=== PATIENT | female | born 2000 | race American Indian/Alaskan Native ===

== ENCOUNTER 2020-09-24 01:59 | Emergency (ER) | payer SELFPAY ==
[2020-09-24 03:12] LABS: Basophils % (Auto) 0.5 % (0.0-1.8); Eosinophils % (Auto) 0.4 % (0.0-4.3); Hematocrit 34.9 % (30.3-42.9); Hemoglobin 11.9 gm/dl (10.1-14.3); Lymphocytes # (Auto) 1.6 K/mm3 (1.2-5.4); Lymphocytes % (Auto) 24.2 % (13.4-35.0); Mean Corpuscular HGB Conc 34 % (30-34); Mean Corpuscular Volume 94 fl (79-97); Monocytes # (Auto) 0.8 K/mm3 (0.0-0.8); Monocytes % (Auto) 12.6 % (0.0-7.3); Platelet Count 236 K/mm3 (140-440); Red Blood Count 3.72 M/mm3 (3.65-5.03); Red Cell Distribution Width 14.4 % (13.2-15.2)
[2020-09-24 03:33] LABS: BUN/Creatinine Ratio 12; Blood Urea Nitrogen 11 mg/dL (7-17); Calcium 9.4 mg/dL (8.4-10.2); Hemolysis Index 5
--- NOTE | 2020-09-24 04:04 | Emergency Department Report ---
ED Psych HPI - General Chief Complaint: Psych Stated Complaint: MH Time Seen by Provider: 09/24/20 03:30 Source: EMS Mode of arrival: Stretcher - History of Present Illness Initial Comments: 20-year-old female, with reported history of bipolar disorder, presents to ED via EMS. Per EMS report, patient was at a bar earlier in the night. Police officers found her walking around in circles in the road. Patient exhibiting strange behavior, trying to take off her clothes, acting fidgety. Patient apparently took someone else's car as well. She also tried to jump off a retain ing wall. Patient was given Haldol and Versed by EMS. She is currently quite sedated and I am unable to get any history from her. Patient only moans. Complaint: altered mental status -: This morning - Related Data Home Medications Medication Instructions Recorded Confirmed Last Taken OLANzapine [ZyPREXA] 5 mg PO BID 09/24/20 09/24/20 Unknown diphenhydrAMINE [Benadryl CAP] 25 mg PO BID 09/24/20 09/24/20 Unknown Allergies Allergy/AdvReac Type Severity Reaction Status Date / Time cetirizine [From Zyrtec] Allergy Unknown Verified 09/24/20 02:24 ED Review of Systems ROS: Stated complaint: MH Other details as noted in HPI Comment: Unobtainable due to pts medical conditions ED Past Medical Hx - Past Medical History Previous Medical History?: Yes Hx Psychiatric Treatment: Yes (bipolar) Hx Asthma: Yes - Surgical History Past Surgical History?: No Additional Surgical History: unknown - Medications Home Medications: Home Medications Medication Instructions Recorded Confirmed Last Taken Type OLANzapine [ZyPREXA] 5 mg PO BID 09/24/20 09/24/20 Unknown History diphenhydrAMINE [Benadryl CAP] 25 mg PO BID 09/24/20 09/24/20 Unknown History ED Physical Exam - General Limitations: Altered Mental Status General appearance: lethargic (Lethargic but arousable) - Head Head exam: Present: atraumatic, normocephalic - Eye Eye exam: Present: normal appearance, PERRL, EOMI - ENT ENT exam: Present: mucous membranes moist - Neck Neck exam: Present: normal inspection - Respiratory Respiratory exam: Present: normal lung sounds bilaterally. Absent: respiratory distress - Cardiovascular Cardiovascular Exam: Present: regular rate, normal rhythm - GI/Abdominal GI/Abdominal exam: Present: soft. Absent: distended, tenderness - Extremities Exam Extremities exam: Present: normal inspection - Neurological Exam Neurological exam: Present: other (Lethargic but will awaken to painful stimuli, opens eyes and moans, moves all extremities) - Skin Skin exam: Present: warm, dry, intact, normal color ED Course Vital Signs 09/24/20 09/24/20 09/24/20 02:44 08:37 20:15 Temperature 97.5 F L 98.2 F 98.2 F Pulse Rate 59 L 75 76 Respiratory 16 20 16 Rate Blood Pressure 102/44 117/80 105/62 [Right] O2 Sat by Pulse 99 100 100 Oximetry ED Medical Decision Making - Lab Data Result diagrams: 09/24/20 02:54 09/24/20 02:54 - Radiology Data Radiology results: report reviewed, image reviewed - Medical Decision Making 20-year-old female presents to ED following bizarre behavior witnessed by PD and EMS. Patient apparently has a history of bipolar disorder. She was sedated prior to arrival with Haldol and Versed. There is report that patient was at a bar earlier in the evening. Her EtOH level is, however it is unclear if patient used any illicit drugs tonight. Urine drug screen is still pending. Remainder of labs are unremarkable except for some mild hypokalemia. I am unable to get much of a history from the patient. This may be due to the Haldol and Versed that she received from EMS. CT head was ordered to assess for any sort of intracranial injury that could possibly be contributing to her mental status. CT is normal. We will continue to observe patient until she wakes up fully and is able to be re-assessed. Due to report of bizarre behavior, mental health evaluation has been ordered. - Differential Diagnosis Alcohol intoxication, drug intoxication, psychosis, bipolar disorder Critical care attestation.: If time is entered above; I have spent that time in minutes in the direct care of this critically ill patient, excluding procedure time. ED Disposition Clinical Impression: Acute psychosis Disposition: DC-01 TO HOME OR SELFCARE Is pt being admited?: No Condition: Stable Referrals: PRIMARY CARE, [Primary Care Provider] - 3-5 Days
--- NOTE | 2020-09-24 04:36 | Cat Scan Report ---
CT HEAD WITHOUT CONTRAST INDICATION / CLINICAL INFORMATION: Altered mental status. TECHNIQUE: All CT scans at this location are performed using CT dose reduction for ALARA by means of automated exposure control. COMPARISON: None available. FINDINGS: HEMORRHAGE: None. EXTRA-AXIAL SPACES: Normal in size and morphology for the patient's age. VENTRICULAR SYSTEM: Normal in size and morphology for the patient's age. CEREBRAL PARENCHYMA: No significant abnormality. No acute territorial infarct. MIDLINE SHIFT OR HERNIATION: None. CEREBELLUM / BRAINSTEM: No significant abnormality. ORBITS: Normal as visualized. SOFT TISSUES of HEAD: No significant abnormality. CALVARIUM: No significant abnormality. PARANASAL SINUSES / MASTOID AIR CELLS: Normal as visualized. ADDITIONAL FINDINGS: None. IMPRESSION: 1. No acute intracranial abnormality. Signer Name: Neymar Bonner MD Signed: 09/24/2020 4:31 AM Workstation Name: [id number]
[2020-09-24 13:32] LABS: Bacteria,Urine 1+ /HPF (Negative); Bilirubin,Urine NEG (Negative); Blood,Urine NEG (Negative); Color,Urine Yellow (Yellow); Mucus,Urine 3+ /HPF
[2020-09-24 13:37] LABS: Amphetamine Screen,Urine Negative; Cocaine Screen,Urine Negative; Methadone Screen,Urine Negative; Opiate Screen,Urine Negative
[2020-09-24 14:03] LABS: Benzodiazepines Screen,Urine Positive; Cannabinoid Screen,Urine Positive
[2020-09-24 20:50] VITALS: BP 105/62
[2020-09-24] MEDS ORDERED: POTASSIUM CHLORIDE ER 20 MEQ TAB PO ONE (20:54)
--- NOTE | 2020-09-25 20:07 | Consultation ---
History of Present Illness - Reason for Consult Consult date: 09/25/20 Reason for consult: strange behavior - History of Present Psychiatric Illness The patient's medical record was reviewed and the patient's progress was discussed with the nursing staff. The nurse caring for the patient and the sitter both state the patient has exhibited no signs of unusual or bizarre behaviors. They said she has been calm and cooperative and have shown no signs of psychosis or expressed thoughts of self harm or harm to others. Dinora Adrian is a 20 y/o female who was brought in by the police for being in the middle of the road and with strange behavior. During my interview with the patient she is calm and cooperative. She is pleasant and conversational. She says "I think I just had too much fun yesterday. It all started that morning with my boyfriend and friends." She says she had "smoked week." She says "we were getting ready to race." The patient says she sees outpatient psychiatry but doesn't take the medication she's prescribed. 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 I use beads and light incense and candles like my grandma used to." She denies SI/HI or any feelings of self harm. She says "no, I've never tried to hurt myself. I wouldn't do that to my family." She says she was in [place] about "two months ago." She says "my dog go stolen that I had for 10 years." She says "I became overwhelmed." She says she was diagnosed with "bipolar and dysfunctional grieving." She says "I see my therapist but I just don't like taking medications." The patient says "I still have what they gave me at home." Spoke with mom, mom was concerned that the patient does not take her medication, and states the patient was at [facility] and she feels they released the patient too soon. Advised mom that we could not force the patient to take her medication . Also advised mom that I did not have a reason to admit the patient as she did not exhibit bizarre behaviors, disorganized thoughts, SI/HI or any psychosis. Psychiatric History Diagnoses: Bipolar and dysfunctional grieving Suicide attempts: Denies Hospitalizations: Once Medications tried: Olanzapine Outpatient treatment: Yes Past Medical History None reported Social History Status: Single Living arrangement: alone Substance abuse: THC Highest level of education: cosmotology Legal history: Denies REVIEW OF SYSTEMS Constitutional: Negative for weight loss ENT: Negative for stridor Respiratory: Negative for cough or hemoptysis All other systems reviewed and are negative MSE Appearance: Dressed appropriately. Awake Behavior: calm and cooperative, pleasant Mood: "good" Affect: Congruent Thought Process: Goal directed Speech: Normal tone and pace Thought Content Suicidal: Denies Homicidal: Denies Hallucinations: Denies Delusions: None elicted Consciousness: Alert Cognition/Memory: Impaired Insight/Judgment: Limited Diagnoses: Bipolar Disorder Noncompliance with medical regimen and other treatment Plan No scripts given at this time. The patient is to restart previously prescribed med Sitter: Defer to primary Medical: Per primary Disposition: Do recommend acute inpatient treatment. The patient understands that if SI/HI or any fear of endangerment arise she should seek immediate assistance including but not limited to the crisis hotline, [facility], . The cylinder sander operator is to discuss safety plan She is to follow up with outpatient psych in 7 to 14 days upon discharge Will sign off. Thank you for this consult. Medications and Allergies Allergies Allergy/AdvReac Type Severity Reaction Status Date / Time cetirizine [From Zyrte] Allergy Unknown Verified 09/24/20 02:24 Home Medications Medication Instructions Recorded Confirmed Last Taken Type OLANzapine [ZyPREXA] 5 mg PO BID 09/24/20 09/24/20 Unknown History diphenhydrAMINE [Benadryl CAP] 25 mg PO BID 09/24/20 09/24/20 Unknown History Mental Status Exam - Vital signs Last Vital Signs Temp 98.2 F 09/24/20 20:15 Pulse 76 09/24/20 20:15 Resp 16 09/24/20 20:15 BP 105/62 09/24/20 20:15 Pulse Ox 100 09/24/20 20:15 Results Result Diagrams: 09/24/20 02:54 09/24/20 02:54 All other labs normal.
== END 2020-09-25 12:45 | disposition home or self-care (01) ==
LOC: ED 01:59
DX: F23 Brief psychotic disorder (principal); F31.9 Bipolar disorder, unspecified; J45.909 Unspecified asthma, uncomplicated; Z79.899 Other long term (current) drug therapy; Z88.8 Allergy status to other drugs, medicaments and biological substances
CPT/HCPCS: 36415; 70450; 80048; 80307; 80320; 81001; 84703; 85025; G0480